=== PATIENT | female | born 1960 | race Caucasian/White ===

== ENCOUNTER 2025-02-11 12:39 | Emergency (ER) | payer MEDICAID, SELFPAY ==
--- OUTSIDE RECORDS SUMMARY | 2025-02-07 10:30 | XMS_ITS | Encounter Summary ---
Author Organization [facility] Address [address] [place] [address] Care Team Providers Care Library Acquisitions Technician Name Role Phone Margarito Hardwick MD Primary Care Provider [phone] Reason for Visit * Reason Comments Psych Np Care Visit Encounter Details Date Type Department Care Team (Late st Contact Info) Description 02/07/2025 10:30 AM INSEAM LEVELER Office Visit [facility] ([facility] Primary Care [place] [address] [facility] [address] [place] [address] Margarito Hardwick MD [address] [place] [id number] Problems related to living in residential institution (Primary Dx); Person living in residential institution; Adult failure to thrive; Chronic obstructive pulmonary disease, unspecified COPD type (CMS/HCC); Hemiplegia and hemiparesis following cerebral infarction affecting left non-dominant side (CMS/HCC); Weakness; Muscle spasm of left lower extremity Social History Tobacco Use Types Packs/Day Years Used Date Smoking Tobacco: Never Smokeless Tobacco: Never Alcohol Use Standard Drinks/Week Comments Never 0 (1 standard drink = 0.6 oz pur e alcohol) Comments Unknown Sex and Gender Information Value Date Recorded Sex Assigned at Not on file Legal Sex Female 4:20 PM CDT Gender Identity Not on file Sexual Orientation Not on file documented as of this encounter Last Filed Vital Signs Vital Sign Reading Time Taken Comments Blood Pressure 140/80 02/07/2025 10:40 AM INSEAM LEVELER pt in nuring home unable to retake Pulse 67 02/07/2025 10:40 AM INSEAM LEVELER Temperature 36.3 C (97.3 F) 02/07/2025 10:40 AM INSEAM LEVELER Respiratory Rate 18 02/07/2025 10:4 0 AM INSEAM LEVELER Oxygen Saturation 95% 02/07/2025 10: 40 AM INSEAM LEVELER Inhaled Oxygen Concentration - - Weight 84.8 kg (187 lb) 02/07/2025 10:4 0 AM INSEAM LEVELER Height - - Body Mass Index - - documented in this encounter Progress Notes * Margarito Hardwick MD - 02/08/2025 9:59 AM CST PROGRESS NOTE DATE: 02/07/2025 PCP: Margarito Hardwick MD Chief Complaint Patient presents with Psych Np Care Visit HISTORY OF PRESENT ILLNESS Lucero Bates is a 64 y.o. female. 64-year-old female, snf facility visit, monthly, no acute concerns, nursing staff voiced no acute concerns, daily activities are baseline for patient. PROBLEM LIST Patient Active Problem List Diagnosis Code Problems related to living in residential institution Z59.3 Person living in residential institution Z78.9 Hemiplegia and hemiparesis following cerebral infarction affecting left non- dominant side ([facility])I69.354 Chronic obstructive pulmonary disease (COPD) ([facility]) J44.9 Type II diabetes mellitus ([facility]) E11.9 Hyperlipidemia E78.5 Benign essential hypertension I10 Adult failure to thrive R62.7 Weakness R53.1 Insomnia G47.00 Muscle spasm of left lower extremity M62.838 CURRENT MEDICATIONS Current Outpatient Medications Medication Sig Dispense Refill ammonium lactate (LAC-HYDRIN) 12 % Lotion atorvastatin (LIPITOR) 40 mg tablet baclofen (LIORESAL) 10 mg tablet fosfomycin tromethamine (MONUROL) 3 gram Packet lisinopriL (PRINIVIL) 40 mg tablet metFORMIN (GLUCOPHAGE) 500 mg tablet metoprolol tartrate (LOPRESSOR) 25 mg tablet nystatin (NYSTOP) 100,000 unit/gram powder No current facility-administered medications for this visit. RECENT LABS No results found for: WBC , HGB , HGBPOC , HCT , HCTPOC , PLT , MCV , CHOLTOT , HDL , LDLCALC , LDLDIRECT , TRIGLYCERIDE , ALT , AST , NA , K , KPOC , CL , CO2 , CREAT , CREATPOC , BUN , TSH , TSHULTRA , THYROIDSTIM , PSA , INR , HGBA1C , MICROALBUMIN , MALBUR , [id number] ALLERGIES Allergies Allergen Reactions Sulfa (Sulfonamide Antibiotics) Headache Migraine Penicillins Rash ROS Review of Systems Constitutional: Negative for activity change, appetite change and fever. Respiratory: Negative for chest tightness, shortness of breath and wheezing. Cardiovascular: Negative for chest pain and palpitations. Gastrointestinal: Negative for abdominal pain. Musculoskeletal: Positive for arthralgias and back pain. Neurological: Negative for dizziness and light-headedness. Psychiatric/Behavioral: Negative for behavioral problems. PHYSICAL EXAMINATION BP (!) 140/80 Comment: pt in nuring home unable to retake Pulse 67 Temp 97.3 ??F (36.3 ??C) Resp 18 Wt 84.8 kg (187 lb) LMP (LMP Unknown) SpO2 95% Physical Exam Eyes: General: No scleral icterus. Conjunctiva/sclera: Conjunctivae normal. Cardiovascular: Rate and Rhythm: Normal rate and regular rhythm. Heart sounds: Normal heart sounds. Pulmonary: Effort: Pulmonary effort is normal. Breath sounds: Normal breath sounds. Skin: Coloration: Skin is not jaundiced. Neurological: General: No focal deficit present. Mental Status: She is alert. Mental status is at baseline. Psychiatric: Mood and Affect: Mood normal. ASSESSMENT & PLAN Patient Active Problem List Diagnosis Code Problems related to living in residential institution Z59.3 Person living in residential institution Z78.9 Hemiplegia and hemiparesis following cerebral infarction affecting left non- dominant side ([facility])I69.354 Chronic obstructive pulmonary disease (COPD) ([facility]) J44.9 Type II diabetes mellitus ([facility]) E11.9 Hyperlipidemia E78.5 Benign essential hypertension I10 Adult failure to thrive R62.7 Weakness R53.1 Insomnia G47.00 Muscle spasm of left lower extremity M62.838 Assessment plan: This is a 64-year-old female, snf facility, monthly visit, longterm staff voiced noacute concerns, daily activities are normal for patient, vital signs noted/stable, blood pressure 140/80, pulse rate 67/min, pulse ox room air 95%, afebrile 97.3, physical exam stable/no significant changes, chart reviewed with longterm staff, continue all medications, supportive care. To be followed up monthly. MD ENDA Deng ELIANE [address] [facility] [place] [address] [facility] [address] Portions of this encounter have been generated with Benji Henley Speaking without a human first aid attendant. This report may or may not have been corrected for typographical, grammatical, and syntax errors.* AM LEVELER documented in this encounter Plan of Treatment Not on file documented as of this encounter Visit Diagnoses Diagnosis Problems related to living in residential institution- Primary Person living in residential institution Person living in residential institution Adult failure to thrive Chronic obstructive pulmonary disease, unspecified COPD type (CMS/HCC) Hemiplegia and hemiparesis following cerebral infarction affecting left non- dominant side (CMS/HCC) Weakness Other malaise and fatigue Muscle spasm of left lower extremity documented in this encounter Care Teams Library Acquisitions Technician Relationship Specialty Start Date End Date Margarito Hardwick MD [address] [facility] [address] [place] [id number] PCP - General Internal Medicine 11/08/24 documented as of this encounter
[2025-02-11 12:39] VITALS: BP 168/90; PULSE 73; RESP 17; TEMP 36.8; O2SAT 97; BMI 33.8
--- NOTE | 2025-02-11 12:42 | ECG_ITS ---
[facility] Test Date: 2025-02-11 Pat Name: Lucero Bates Department: Room: Gender: Female Auditing Coder: : [id number] Requested By: Roderick Larkin Order Number: [id number] Deborah MD: Adonay Chilel M.D. Measurements Intervals [place] Rate: 72 P: 36 MN: 209 QRS: 68 QRSD: 105 T: 33 QT: 394 QTc: 434 Interpretive Statements SINUS RHYTHM POSSIBLE ANTERIOR MYOCARDIAL INFARCTION , OF INDETERMINATE AGE [30 ms Q WAVE IN V3/V4, OR R < 0.2 mV IN V4] No previous ECG available for comparison Electronically Signed On 02-11-2025 14:58:36 SWEATBAND PERFORATOR by Adonay Chilel M.D. [email or web address]
--- NOTE | 2025-02-11 12:42 | CTR_ITS ---
PROCEDURE INFORMATION: Exam: CT Head Without Contrast Exam date and time: 02/11/2025 12:56 PM Age: 64 years old Clinical indication: Weakness, extremity TECHNIQUE: Imaging protocol: Computed tomography of the head without contrast. Radiation optimization: All CT scans at this facility use at least one of these dose optimization techniques: automated exposure control; mA and/or kV adjustment per patient size (includes targeted exams where dose is matched to clinical indication); or iterative reconstruction. COMPARISON: No relevant prior studies available. RADIATION DOSE METRICS: Total DLP (mGy-cm): 1100.45 FINDINGS: Brain: That is also there there is a large area of encephalomalacia in the right middle cerebral artery distribution compatible with an old right middle cerebral artery infarct. There is ex vacuo dilatation of the right lateral ventricle . There is no intracranial hemorrhage, mass effect, extra-axial collection, or midline shift. There is patchy hypoattenuation in the periventricular white matter of both cerebral hemispheres which are nonspecific but most likely related to chronic ischemic small vessel disease. Cerebral ventricles: There is proportional prominence of the ventricles and cortical sulci. Paranasal sinuses: There is mild mucosal thickening in the right maxillary antrum. Mastoid air cells: Visualized mastoid air cells are well aerated. Bones: Unremarkable. No acute fracture. Soft tissues: Unremarkable. CT/CT head wo con* [id number] IMPRESSION: 1. No acute intracranial abnormality. 2. Large old infarct in the right frontotemporoparietal region. 3. Mild chronic white matter disease. 4. Age-appropriate atrophy.
--- NOTE | 2025-02-11 12:42 | XRR_ITS ---
PROCEDURE INFORMATION: Exam: XR Chest Exam date and time: 02/11/2025 12:57 PM Age: 64 years old Clinical indication: Other: Weakness TECHNIQUE: Imaging protocol: Radiologic exam of the chest. Views: 1 view. COMPARISON: No relevant prior studies available. FINDINGS: Lungs: No active infiltrate or focal parenchymal abnormality. Pulmonary vascularity is normal. Pleural spaces: No pleural effusion. No pneumothorax. Heart/Mediastinum: Normal cardiomediastinal sillhouette. Bones/joints: Unremarkable. XR/XR chest 1V portable [id number] IMPRESSION: No acute cardiopulmonary abnormality.
--- OUTSIDE RECORDS SUMMARY | 2025-02-11 12:47 | XMS_ITS | Encounter Summary ---
Author Organization [facility] Health Address [address] [place] [address] Care Team Providers Care Drier Take Off Tender Name Role Phone Yocasta Kayurbano Morris DO Primary Care Provider [phone] Lauren Murrell REFRACTORY MANAGER-FRESH MEAT GRADER Unavailable [phone] Cyndi Fernandze RN Unavailable [phone] Encounter Details Date Type Department Care Team (Late st Contact Info) Description 06/25/2016 [facility] Outpatient Visit [facility] [address] [place] [address] Document, Scanned Social History Tobacco Use Types Packs/Day Years Used Date Smoking Tobacco: Every Day Cigarettes 0.8 20 Started: 10/11/1995; Last attempted to quit: 10/11/2015 Smokeless Tobacco: Never Alcohol Use Standard Drinks/Week Comments Yes 1 (1 standard drink = 0.6 oz pur e alcohol) only drinks on rare occasions Comments No Sex and Gender Information Value Date Recorded Sex Assigned at Not on file Legal Sex Female 8:04 AM TAG MAKER Gender Identity Not on file Sexual Orientation Not on file 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 Answer Date of Assessment Author No 01/04/2016 9:00 PM Lidia Elizondo RN * Is person blind or have serious difficulty seeing? Answer Date of Assessment Author Yes 01/04/2016 9:00 PM CDT Sweet, Gi na B, RN * Does person have serious difficulty walking/climbing stairs? Answer Date of Assessment Author Yes 01/04/2016 9:00 PM CDT Lidia Alamo RN * Does person have difficulty dressing/bathing? Answer Date of Assessment Author No 01/04/2016 9:00 PM CDT Lidia Alamo RN * Does person have difficulty doing errands alone? Answer Date of Assessment Author No 01/04/2016 9:00 PM CDT Lidia Alamo RN documented as of this encounter Mental Status * Does person have difficulty concentrating/remembering/making decisions? Answer Entry Date Author Yes 01/04/2016 9:00 PM CDT Lidia Alamo RN documented in this encounter Plan of Treatment Not on file documented as of this encounter Goals Goal Patient Goal Type Associated Problems Recent Progress Patient-Stated? Author Blood Pressure < 140/90 Blood Pressure 112/72( 017 9:32 AM CDT) No Jen Crystal documented as of this encounter Visit Diagnoses Not on filedocumented in this encounter Care Teams Drier Take Off Tender Relationship Specialty Start Date End Date Blanco Kay DO PCP - General Family Medicine 09/12/10 08/17/17 Lauren Murrell APRN-FRESH MEAT GRADER Nurse Practitioner Family Medicine 03/09/11 Cyndi Fernandez RN Disease Management 09/05/15 documented as of this encounter
--- OUTSIDE RECORDS SUMMARY | 2025-02-11 12:47 | XMS_ITS | Encounter Summary ---
Author Organization [facility] Health Address [address] [place] [address] Care Team Providers Care Quebracho Tanner Name Role Phone Yocasta Kayurbano Morris DO Primary Care Provider [phone] Lauren Murrell PARADICHLOROBENZENE TENDER-COMMUNICATIONS STATION MANAGER Unavailable [phone] Cyndi Fernandez RN Unavailable [phone] Encounter Details Date Type Department Care Team (Late st Contact Info) Description 06/11/2016 [facility] Outpatient Visit [facility] [address] [place] [address] Document, Scanned Social History Tobacco Use Types [...] on file Legal Sex Female 8:04 AM KENO MANAGER Gender Identity Not on file Sexual Orientation [...] on filedocumented in this encounter Care Teams Quebracho Tanner Relationship Specialty Start Date End Date Blanco Kay DO PCP - General Family Medicine 09/12/10 08/17/17 Lauren Murrell APRN-COMMUNICATIONS STATION MANAGER Nurse Practitioner Family Medicine 03/09/11 Cyndi Fernandez RN Disease Management 09/05/15 documented as of this encounter
--- OUTSIDE RECORDS SUMMARY | 2025-02-11 12:47 | XMS_ITS | Encounter Summary ---
Author Organization [facility] Health Address [address] [place] [address] Care Team Providers Care Bark Tanner Name Role Phone Yocasta Kayurbano Morris DO Primary Care Provider Lauren Murrell MANAGER FUNCTIONAL-RESIDENTIAL MORTGAGE MANAGER Unavailable + [phone] Cyndi Fernandez RN Unavailable [phone] Encounter Details Date Type Department Care Team (Late st Contact Info) Description 07/23/2016 [facility] Outpatient Visit [facility] [address] [place] [address] Document, Scanned Social History Tobacco Use Types [...] on file Legal Sex Female 8:04 AM HIDE SPREADER Gender Identity Not on file Sexual Orientation [...] on filedocumented in this encounter Care Teams Bark Tanner Relationship Specialty Start Date End Date Blanco Kay DO PCP - General Family Medicine 09/12/10 08/17/17 Lauren Murrell APRN-RESIDENTIAL MORTGAGE MANAGER Nurse Practitioner Family Medicine 03/09/11 Cyndi Fernandez RN Disease Management 09/05/15 documented as of this encounter
--- OUTSIDE RECORDS SUMMARY | 2025-02-11 12:48 | XMS_ITS | Clinical Summary ---
Author Organization [facility] Address [address] [place] [address] Care Team Providers Care Gear Tooth Grinding Machine Operator Name Role Phone Lauren Murrell APRN-ERIBERTO Unavailable [phone] Cyndi Fernandez RN Unavailable [phone] Source Comments [facility],non-owned Affiliates and Associated Physician Practices is amultiple site organization consisting of ambulatory clinics and hospital sitesin [place], [place], [place] and [place]. This disclosure is being madepursuant to the Care Everywhere program and may not contain all information available regarding this patient. Last updated 17.[facility] Allergies Active Allergy Reactions Criticality Noted Date Comments Penicillins Rash Low 01/15/2009 Sulfa Drugs 01/15/2009 Migraine Medications * Be aware that medications may not be up to date on this document. Alwaysverify current medications with the patient. aspirin (ASPIRIN) 81 MG chew tablet Take 1 Tab by mouth once daily 0 02/21/2016 Active clopidogrel (PLAVIX) 75 MG tablet Take 1 Tab by mouth once daily 30 Tab 5 05/21/2016 Active lisinopril (PRINIVIL; ZESTRIL) 40 MG tablet Take 1 Tab by mouth once daily 30 Tab 5 06/04/2016 Active amLODIPine (NORVASC) 10 MG tabletIndicatio ns:Hypertension Take 1 Tab by mouth once daily Reasons: High Blood Pressure 90 Tab 3 07/14/2016 Active potassium chloride (KLOR-CON M) 10 MEQ tablet Take 1 Tab by mouth once daily 90 Tab 3 07/15/2016 Active Loratadine (CLARITIN) 10 MG Active metFORMIN (GLUCOPHAGE) 500 MG tablet TAKE ONE TABLET BY MOUTH TWICE DAILY WITH MORNING AND EVENING MEAL 180 Tab 3 09/02/2016 Active furosemide (LASIX) 20 MG tablet TAKE ONE TABLET BY MOUTH ONCE DAILY 90 Tab 3 09/02/2016 Active sertraline (ZOLOFT) 100 MG tablet TAKE ONE TABLET BY MOUTH ONCE DAILY IN THE EVENING AT 8 PM 90 Tab 3 09/02/2016 Active metoprolol tartrate (LOPRESSOR) 50 MG tablet TAKE ONE TABLET BY MOUTH TWICE DAILY 180 Tab 3 09/02/2016 Active atorvastatin (LIPITOR) 40 MG tablet TAKE ONE TABLET BY MOUTH ONCE DAILY AT BEDTIME 90 Tab 3 09/02/2016 Active Active Problems Problem Noted Date Diagnosed Date Chronic obstructive pulmonary disease 08/06/2016 Nonischemic cardiomyopathy 05/25/2016 Hemiparesis affecting nondom inant side as late effect of cerebrovascular accident 02/28/2016 Cerebrovascular accident (CV A) due to thrombosis of middle cerebral artery 01/05/2016 Assessment & Plan (01/05/2016 9:35 AM CDT): Sub acute CVA Headache likely secondary to CVA. Will await Neurology consult Abnormal chest CT bilat Infi ltrates, nodules, and lymph adenopathy 09/04/2015 HTN 09/04/2015 Assessment & Plan (01/05/2016 9:35 AM CDT): Will resume her home medications and re-evaluate. 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 Tobacco use disorder 08/25/2012 Depression 08/25/2012 Hidradenitis axillaris 07/17/2010 Insomnia 07/17/2010 Resolved Problems Problem Noted Date Diagnosed Date Resolved Date UTI (urinary tract infection) 02/18/2016 03/03/2016 Altered mental status 02/18/20162015 Hyperkalemia 02/18/2016 02/28/2016 Pain in joint, shoulder region 02/12/2016 07/14/2016 Overview (02/12/2016): Dx: pain post stroke Dislocated shoulder 01/18/2016 07/15/19 17 Headache 01/05/2016 02/28/2016 Assessment & Plan (01/05/2016 9:38 AM CDT): She received a dose of Toradol. Headache is better again would defer to neurology COPD exacerbation 10/27/2015 02/28/2016 Pleural effusion transudative 09/05/2015 02/28/2016 Acute respiratory failure with hypoxemia 09/05/2015 02/28/2016 Chest pain, pleuritic 09/04/20152015 Acute on chronic systolic he art failure ? on Echo (Not treated) 09/04/2015 07/14/2016 Hand pain, right 08/25/2012 07/14/2016 Elbow pain, left 08/25/2012 07/14/2016 Elevated blood pressure read ing without diagnosis of hypertension 07/17/2010 10/08/2015 Overview (06/27/2016): IMO Update 06/27/2016 Immunizations Immunization Administration Dates Next Due HEP B VACCINE, ADULT 3 DOSE 07/14/2016 INFLUENZA VACCINE, QUADR. (F LUZONE; FLULAVAL; FLUARIX; AFLURIA QUADRIVALENT; 6MO+), 0.5 ML (IIV4) 01/05/2016 PNEUMOCOCCAL PPSV23 04/13/2016 TDAP (7yrs+) 01/15/2009 Family History Medical History Relation Name Comments NM Maternal Uncle 2 Glaucoma Mother Hypertension Mother Osteoporosis Mother Cancer - Breast Neg Hx Cancer - Colon Neg Hx Colon polyps Neg Hx Relation Name Status Comments Brother 1 Alive age 37, MS Brother 2 Alive age 42, healthy Brother 3 half brother (Age ?) MS Father Alive unknown except emphysema Maternal Uncle 1 several Other NM CAD Maternal Uncle 2 Mother (Age 71) COPD and H eart disease Sister 1 Alive age 48, healthy Sister 2 (Age 26) medication side effect Sister 3 Alive age 39, healthy Sister 4 half sister (Age ?) MS Social History Tobacco Use Types Packs/Day Years Used Date Smoking Tobacco: Every Day Cigarettes 1 20 Started: 10/11/1995; Last attempted to quit: 10/11/2015 Smokeless Tobacco: Never Tobacco Cessation:Ready to Q uit: Yes Alcohol Use Standard Drinks/Week Comments No 1 (1 standard drink = 0.6 oz pur e alcohol) Comments No Sex and Gender Information Value Date Recorded Sex Assigned at Not on file Legal Sex Female 8:04 AM TRAINING PROFESSIONAL Gender Identity Not on file Sexual Orientation Not on file 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 Not on file Not on file Not on file Last Filed Vital Signs Vital Sign Reading Time Taken Comments Blood Pressure 112/72 08/07/2016 9:32 AM CDT Pulse 70 08/07/2016 9:32 AM CDT Temperature 36.8 C (98.3 F) 03/25/2016 12:18 PM TRAINING PROFESSIONAL Respiratory Rate 20 07/14/2016 9:26 AM CDT Oxygen Saturation 95% 08/06/2016 11:47 AM CDT Inhaled Oxygen Concentration - - Weight 88.5 kg (195 lb) 08/07/2016 9:32 AM CDT Height 157.5 cm (5' 2 ) 07/14/2016 9:26 AM CDT Body Mass Index 35.67 07/14/2016 9:26 AM CDT Plan of Treatment Health Maintenance Due Date Last Done Comments BONE DENSITY TESTING 1959 COLOGUARD (AGES 45-75) - COLON CA SCREENING 1959 COLON MONITORING 1959 COLONOSCOPY - COLON CA SCREENING 1959 CT COLONOGRAPHY - COLON CA SCREENING 1959 Colorectal Cancer Screening 1959 FIT - COLON CA SCREENING 1959 FLEX SIG - COLON CA SCREENING 1959 HIV SCREENING 10/17/1974 PAP with HPV 10/17/1989 Respiratory Syncytial Virus (RSV) Vaccine Pt: or over 60 yrs (1 - Risk 50-74 years 1-dose series) 10/17/2009 ZOSTER VACCINE (1 of 2) 10/17/2009 Cervical Cancer Screening 03/15/2015 PAP SMEAR 03/15/2015 03/15/2012, 01/15/2009 HEPATITIS B VACCINE (2 of 3 - Risk 3-dose series) 08/11/2016 07/14/2016 DIABETES-HGB A1C 01/13/2017 07/14/2016, 10/2015, 09/04/2015 DIABETES-FOOT EXAM WITH MONOFILAMENT 04/13/2017 04/13/2016 PNEUMOCOCCAL VACCINE 50+ (2 of 2 - PCV) 04/13/2017 04/13/2016 DIABETES-SERUM CREATININE 07/14/20172016, 02/18/2016, 02/17/2016, Additional history exists MAMMOGRAM 07/22/2018 07/22/2016, 01/14/2009 DTAP/TDAP/TD VACCINES (2 - Td or Tdap) 01/15/2019 01/15/2009 DEPRESSION SCREENING 03/29/2024 DIABETES - URINE PROTEIN SCREENING 03/29/2024 04/15/2016 COVID-19 VACCINE ( season) 2024 INFLUENZA VACCINE (#1) 2024 01/05/2016 HEPATITIS C SCREENING Completed 04/13/2016 HIB VACCINE Aged Out No longer eligi ble based on patient's age to complete this topic HPV VACCINE Aged Out No longer eligi ble based on patient's age to complete this topic MENINGOCOCCAL (Group B) VACCINE SHARED DECISION-MAKING Aged Out No longer eligible based on patient's age to complete this topic MENINGOCOCCAL GROUPS A/C/Y/W VACCINE Aged Out No longer eligible based on patient's age to complete this topic Goals Goal Patient Goal Type Associated Problems Recent Progress Patient-Stated? Author Blood Pressure < 140/90 Blood Pressure 112/72( 017 9:32 AM CDT) No Bonilla, Jen Procedures Procedure Name Priority Date/Time Associated Diagnosis Comments MAMMO BILAT SCREENING Routine 07/22/2016 10:04 AM CDT Screening for breast cancer BASIC METABOLIC PANEL (CALCIUM TOTAL) Routine 07/14/2016 10:11 AM CDT Type 2 diabetes mellitus without complication, without long-term current use of insulin HEMOGLOBIN A1C Routine 07/14/2016 10:11 AM CDT Type 2 diabetes mellitus without complication, without long-term current use of insulin MICROALB/CREAT RATIO URINE RANDOM PANEL Routine 04/15/2016 3:10 PM TRAINING PROFESSIONAL Type 2 diabetes mellitus without complication, without long-term current use of insulin HEPATITIS C ANTIBODY Routine 04/13/2016 11:33 AM TRAINING PROFESSIONAL Need for hepatitis C screening test PAP LB RFLX HPV ASCU Routine 03/15/2012 3:58 PM TRAINING PROFESSIONAL Routine gynecological examination from Last 3 Months or Most Recently Relevant to Health Maintenance Results * MAMMO SCREENING DIGITAL IMAGE BILAT (07/22/2016 10:04 AM CDT) Anatomical Region Laterality Modality Breast Bilateral Mammography 07/29/2016 9:40 AM CDT Impressions 07/29/2016 9:40 AM CDT No mammographic evidence of malignancy. BI-RADS Category 1: Negative examination. Return for mammograms in one year or sooner if clinically indicated. Narrative 07/29/2016 9:40 AM CDT Bilateral mammography. Most recent comparison: 01/14/2009 History: Screening mammogram. Technique: Bilateral Breasts. Mammography views included: CC and MLO. Images interpreted with CAD. 3-D tomography was performed. Findings: Breast composition: Almost entirely fatty. No suspicious microcalcifications, masses or areas of architectural distortion. The fibroglandular pattern has remained stable. Blanco Kay DO MAMMO ORDERABLES Final Result * HEMOGLOBIN A1C (07/14/2016 10:11 AM CDT) Hemoglobin A1c 5.9 4.2 - 6.3 % [facility] INSURANCE BILL Comment:AVERAGE GLUCOSE MG/D L BLOOD 123 mg/dL Whole Blood BLOOD SPECIMEN WITH EDTA / Unknown 07/14/2016 10:11 AM CDT 07/14/2016 Narrative Resulting Agency Comment [facility] [address] [place] HECTOR [phone] [place] Blanco Kay DO LAB - CHEMISTRY ORDERABLES Final Result [facility] INSURANCE BILL [address] [place] [address] * (ABNORMAL) BASIC METABOLIC PANEL (CALCIUM TOTAL) (07/14/2016 10:11 AM CDT) Glucose 109(H) 74 - 106 mg/dL [facility] INSURANCE BILL BUN 12 7 - 21 mg/dL [facility] INSURANCE BILL Creatinine 0.65 0.50 - 1.30 mg/dL [facility] INSURANCE BILL eGFR by MDRD >60 >60 mL/min/1.7 3m2 [facility] INSURANCE BILL eGFR by MDRD >60 >60 mL/min/1.7 3m2 [facility] INSURANCE BILL Sodium 141 136 - 145 mmol/L [facility] INSURANCE BILL Potassium 3.4(L) 3.5 - 5.1 mmol/L [facility] INSURANCE BILL Chloride 103 98 - 107 mmol/L [facility] INSURANCE BILL CO2 25 22 - 31 mmol/L [facility] INSURANCE BILL Calcium 9.4 8.5 - 10.1 mg/dL [facility] INSURANCE BILL Blood BLOOD SPECIMEN / Unknown 07/14/2016 10:11 AM CDT 07/14/2016 Narrative Resulting Agency Comment [facility] [address] [place]ECTOR [phone] [place] Blanco Kay DO LAB - CHEMISTRY ORDERABLES Final Result [facility] INSURANCE BILL [address] [place] [address] * MICROALB/CREAT RATIO URINE RANDOM PANEL (04/15/2016 3:10 PM TRAINING PROFESSIONAL) Creatinine Urine 76 mg/dL [facility] INSURANCE BILL Microalbumin Urine 0.6 mg/dL [facility] INSURANCE BILL Microalbumin/Crea tinine Ratio 8 <30 mg/g [facility] INSURANCE BILL Urine URINE SPECIMEN OBTAINED BY CLEAN CATCH PROCEDURE / Unknown 04/15/2016 3:10 PM TRAINING PROFESSIONAL 04/15/2016 Narrative Resulting Agency Comment [facility] [address] [place] HECTOR [phone] Blanco Kay DO LAB - URINE CHEMISTRY ORDERABLES Final Result [facility] INSURANCE BILL [address] [place] [address] * HEPATITIS C ANTIBODY (04/13/2016 11:33 AM TRAINING PROFESSIONAL) Hepatitis C Antibody Non Reactive Non Reactive [facility] INSURANCE BILL Comment: Non Reactive - Antibodies to Hepatitis C virus (HCV) were no t detected, result does not exclude early acute HCV infection. Blood BLOOD SPECIMEN / Unknown 04/13/2016 11:33 AM TRAINING PROFESSIONAL 04/13/2016 Narrative Resulting Agency Comment [facility] [address] [phone] Blanco Kay DO LAB - CHEMISTRY ORDERABLES Final Result [facility] INSURANCE BILL [address] [place] [address] * PAP SMEAR LB RFLX HPV ASCU (PO REF LAB) (03/15/2012 3:58 PM TRAINING PROFESSIONAL) Diagnosis [facility] INSURANCE BILL Comment:NEGATIVE FOR INTRAEP ITHELIAL LESION AND MALIGNANCY. Specimen Adequacy [facility] INSURANCE BILL Comment: Satisfactory for evaluation. Endocervical and/or squamous metaplastic cells (endocervical component) are present. Clinician Provided ICD9 [facility] INSURANCE BILL Comment:V72.31 ; Routine obstetrics gynecology md ecological examination Performed by [facility] INSURANCE BILL Comment:Hali Matta Cytote chnologist (ASCP) Comment . [facility] INSURANCE BILL Note [facility] INSURANCE BILL Comment: The Pap smear is a screening test designed to aid in the detection of premalignant and malignant conditions of the uterine cervix. It is not a diagnostic procedure and should not be used as the sole means of detecting cervical cancer. Both false-positive and false-negative reports do occur. . Note [facility] INSURANCE BILL Comment: The HPV DNA reflex criteria were not met with this specimen result therefore, no HPV testing was performed. . MICROSCOPIC CYTOLOGIC EXAMINATION OF SMEAR OF SPECIMEN FROM FEMALE GENITAL TRACT PREPARED USING PAPANICOLAOU TECHNIQUE / Unknown 03/15/2012 3:58 PM TRAINING PROFESSIONAL 03/16/2012 1:22 AM TRAINING PROFESSIONAL Narrative [facility] INSURANCE BILL - 03/18/2012 9:22 AM TRAINING PROFESSIONAL No. of containers..01 CYTYC Thin Prep Vial Resulting Agency Comment [address] [phone] Sawyer Tellez Jr., MD LAB - PATHOLOGY/CYTOL OGY ORDERABLES Final Result [facility] INSURANCE BILL [address] [place] [address] from Last 3 Months or Most Recently Relevant to Health Maintenance Insurance MEDICAID [place] MED[place]ID - PENDING Advance Directives * Full Code (Latest Code Status on File) Date Activated Date Inactivated Comments 02/17/2016 7:41 PM 02/20/2016 11:55 AM * Full Code Date Activated Date Inactivated Comments 02/17/2016 6:11 PM 02/17/2016 7:41 PM * Full Code Date Activated Date Inactivated Comments 01/12/2016 3:45 PM 02/17/2016 10:27 AM * Full Code Date Activated Date Inactivated Comments 01/04/2016 9:36 PM 01/09/2016 8:07 PM * Full Code Date Activated Date Inactivated Comments 09/04/2015 5:25 AM 09/07/2015 3:09 PM Care Teams Gear Tooth Grinding Machine Operator Relationship Specialty Start Date End Date Lauren Murrell, JOSIAH-VEHICLE DELIVERY WORKER Nurse Practitioner Family Medicine 03/09/11 Cyndi Fernandez, RN Disease Management 09/05/15
--- OUTSIDE RECORDS SUMMARY | 2025-02-11 12:48 | XMS_ITS | Encounter Summary ---
Author Organization [facility] Health Address [address] [place] [address] Care Team Providers Care School Age Program Associate Name Role Phone KayYocastaurbano Morris DO Primary Care Provider [phone] Lauren Murrell COMBINE INSPECTOR-YIELD LOSS INSPECTOR Unavailable [phone] Cyndi Fernandez RN Unavailable [phone] Encounter Details Date Type Department Care Team (Late st Contact Info) Description 04/24/2016 [facility] Outpatient Visit [facility] [address] [place] [address] Document, Scanned Social History Tobacco Use Types Packs/Day Years Used Date Smoking Tobacco: Former Cigarettes 0.8 20 0 10/11/1995 - 10/11/2015 Smokeless Tobacco: Never Alcohol Use Standard Drinks/Week Comments Yes 1 (1 standard drink = 0.6 oz pur e alcohol) only drinks on rare occasions Comments No Sex and Gender Information Value Date Recorded Sex Assigned at Not on file Legal 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 Answer Date of Assessment Author Yes 01/04/2016 9:00 PM CDT Lidia Alamo RN * Does person have difficulty dressing/bathing? Answer Date of Assessment Author No 01/04/2016 9:00 PM CDT Lidia Alamo RN * Does person have difficulty doing errands alone? Answer Date of Assessment Author No 01/04/2016 9:00 PM TONIOT Lidia Alamo RN documented as of this [...] Blood Pressure 112/72( 017 9:32 AM CDT) Jen Lowery documented as of this encounter Visit Diagnoses Not on filedocumented in this encounter Care Teams School Age Program Associate Relationship Specialty Start Date End Date Blanco Kay DO PCP - General Family Medicine 09/12/10 08/17/17 Lauren Murrell, COMBINE INSPECTOR-YIELD LOSS INSPECTOR Nurse Practitioner Family Medicine 03/09/11 Cyndi Fernandez RN Disease Management 09/05/15 documented as of this encounter
--- OUTSIDE RECORDS SUMMARY | 2025-02-11 12:48 | XMS_ITS | Clinical Summary ---
Author Organization [facility] Physici an [place] Address [facility] [place] [address] Care Team Providers Care Occ Therapist Name Role Phone Margarito Hardwick MD Primary Care Provider [phone] Allergies Active Allergy Reactions Criticality Noted Date Comments Penicillins Rash Low 01/15/2009 Sulfa (Sulfonamide Antibiotics) Headache High 12/28 Migraine Medications ammonium lactate (LAC-HYDRIN) 12 % Lotion 10/27/2024 Active atorvastatin (LIPITOR) 40 mg tablet 11/07/2024 Active baclofen (LIORESAL) 10 mg tablet 11/07/2024 Active fosfomycin tromethamine (MONUROL) 3 gram Packet 10/17/2024 Active lisinopriL (PRINIVIL) 40 mg tablet 11/07/2024 Active metFORMIN (GLUCOPHAGE) 500 mg tablet 11/07/2024 Active metoprolol tartrate (LOPRESSOR) 25 mg tablet 10/31/2024 Active nystatin (NYSTOP) 100,000 unit/gram powder 11/06/2024 Active Active Problems Problem Noted Date Diagnosed Date Muscle spasm of left lower extremity 01/11/2025 Insomnia 12/07/2024 Assessment & Plan (12/07/2024 10:55 AM CDT): 64-year-old female, nursing home home facility, monthly alf visit, no acute concerns other than sleeping issues, noted that she does take daytime naps here or there during the whole day, counseled, trial of melatonin at nighttime as needed, med chart reviewed with alf staff, to continue all medications and supportive care. Problems related to living in residential instit ution 11/08/2024 Assessment & Plan (12/07/2024 10:55 AM CDT): Assessment & Plan (11/09/2024 2:25 PM CDT): Person living in residential institution 025 Assessment & Plan (12/07/2024 10:55 AM CDT): Assessment & Plan (11/09/2024 2:25 PM CDT): Hemiplegia and hemiparesis f ollowing cerebral infarction affecting left non-dominant side 11/08/2024 Assessment & Plan (12/07/2024 10:55 AM CDT): Stable. {Plan:19132:: Continue supportive care. } Assessment & Plan (11/09/2024 2:25 PM CDT): Stable. Continue supportive care. Chronic obstructive pulmonary disease (COPD) Assessment & Plan (12/07/2024 10:55 AM CDT): Well controlled. Continue current treatment. Assessment & Plan (11/09/2024 2:25 PM CDT): Well controlled. Continue current treatment. Type II diabetes mellitus 11/08/2024 Assessment & Plan (12/07/2024 10:55 AM CDT): Diabetes: Stable. Continue current management. Assessment & Plan (11/09/2024 2:25 PM CDT): Diabetes: Stable. Check A1C to further assess. Continue current management. Hyperlipidemia 11/08/2024 Benign essential hypertension 11/08/2024 Assessment & Plan (12/07/2024 10:55 AM CDT): Assessment & Plan (11/09/2024 2:25 PM CDT): Adult failure to thrive 11/08/2024 Assessment & Plan (12/07/2024 10:55 AM CDT): Assessment & Plan (11/09/2024 2:25 PM CDT): Weakness 11/08/2024 Assessment & Plan (12/07/2024 10:55 AM CDT): Assessment & Plan (11/09/2024 2:25 PM CDT): Assessment and plan: 1. Monthly alf routine visit 2. Patient and alf staff no acute concerns 3. Blood pressure noted 178/98, staff will be monitoring, to call if continues to be 140/90 or higher, presently continue medications. 4. [facility]DC chart/alf staff reviewed's/cases, continue all present medications, supportive care. CVA history/wheelchair/baseline. Encounters Date Type Department Care Team Description 02/07/2025 10:30 AM RESPIRATORY MEDICINE PHYSICIAN Office Visit [facility] [place] [address] [facility] [address] [facility] [place] [address] Margarito Hardwick MD Problems related to living in residential institution (Primary Dx); Person living in residential institution; Adult failure to thrive; Chronic obstructive pulmonary disease, unspecified COPD type (CMS/HCC); Hemiplegia and hemiparesis following cerebral infarction affecting left non-dominant side (CMS/HCC); Weakness; Muscle spasm of left lower extremity 01/30/2025 External Device Data STL ABSTRACTION Provider, Abstract 01/10/2025 Penitentiary Visit [facility] Care [place] [address] [facility] [place] [address] [facility] [address] Margarito Hardwick MD Problems related to living in residential institution (Primary Dx); Person living in residential institution; Chronic obstructive pulmonary disease, unspecified COPD type (CMS/HCC); Hemiplegia and hemiparesis following cerebral infarction affecting left non-dominant side (CMS/HCC); Adult failure to thrive; Weakness; Muscle spasm of left lower extremity 01/09/2025 External Device Data [place] ABSTRACTION Provider, Abstract 12/06/2024 Penitentiary Visit [facility] Primary [facility] [place] [address] [facility] [address] [facility] [place] [address] Margarito Hardwick MD Problems related to living in residential institution (Primary Dx); Person living in residential institution; Chronic obstructive pulmonary disease, unspecified COPD type (CMS/HCC); Type 2 diabetes mellitus without complication, without long-term current use of insulin ([facility]/HCC); Hemiplegia and hemiparesis following cerebral infarction affecting left non-dominant side ([facility]/HCC); Benign essential hypertension; Adult failure to thrive; Weakness; Insomnia, unspecified type 12/05/2024 External Device Data STL ABSTRACTION Provider, Abstract 12/05/2024 Abstract [facility] [address] [place] [address] Ely Larson, [facility] 12/05/2024 Abstract [facility] [address] [place] [address] Ely Larson, [facility] 11/22/2024 External Device Data [facility] ABSTRACTION Provider, Abstract 11/14/2024 External Device Data [place] ABSTRACTION Provider, Abstract 11/14/2024 External Device Data [place] ABSTRACTION Provider, Abstract from Last 3 Months Immunizations Immunization Administration Dates Next Due (PNEUMOVAX 23)(50 YRS UP) PN EUMOCOCCAL POLYSACCHARIDE (PPV23) 0.5 ML, IM 04/13/2016 Hepatitis B Vaccine 07/14/2016 Influenza Seasonal Unspecified Formulation IM Td(adult) Unspecified Formulation 02/12/1993 Family History Relation Name Status Comments Father Unknown Mother Unknown Social History Tobacco Use Types Packs/Day Years Used Date Smoking Tobacco: Never Smokeless Tobacco: Never Tobacco Cessation:Counseling Given: No Alcohol Use Standard Drinks/Week Comments Never 0 (1 standard drink = 0.6 oz pur e alcohol) Comments Unknown Sex and Gender Information Value Date Recorded Sex Assigned at Not on file Legal Sex Female 4:20 PM CDT Gender Identity Not on file Sexual Orientation Not on file Last Filed Vital Signs Vital Sign Reading Time Taken Comments Blood Pressure 140/80 02/07/2025 10:40 AM RESPIRATORY MEDICINE PHYSICIAN pt in nuring home unable to retake Pulse 67 02/07/2025 10:40 AM RESPIRATORY MEDICINE PHYSICIAN Temperature 36.3 C (97.3 F) 02/07/2025 10:40 AM RESPIRATORY MEDICINE PHYSICIAN Respiratory Rate 18 02/07/2025 10:4 0 AM RESPIRATORY MEDICINE PHYSICIAN Oxygen Saturation 95% 02/07/2025 10: 40 AM RESPIRATORY MEDICINE PHYSICIAN Inhaled Oxygen Concentration - - Weight 84.8 kg (187 lb) 02/07/2025 10:4 0 AM RESPIRATORY MEDICINE PHYSICIAN Height - - Body Mass Index - - Plan of Treatment Health Maintenance Due Date Last Done Comments DIABETES ANNUAL RETINAL EXAM 10/17/1977 DIABETES MICROALBUMIN ANNUAL SCREEN 10/17/1977 LDL CHOLESTEROL ANNUAL 10/17/1977 COLORECTAL SCREENING 10/17/2004 FIT-DNA Q 3 years 10/17/2004 FIT/FOBT Q 1 year 10/17/2004 Flex Sig/CT Colonography Q 5 years 10/17/2004 RSV VACCINE (60+ or ) (1 - Risk 50-74 years 1-dose series) 10/17/2009 ZOSTER VACCINE (1 of 2) 10/17/2009 Preventative Visit-Managed Medicaid 03/16/2013 03/15/2012, 01/15/2009 DIABETES HBA1C Q 6 MONTHS 01/13/2017 07/14/2016 DIABETES ANNUAL FOOT EXAM 04/13/2017 04/13/2016 PNEUMOCOCCAL VACCINE 50+ YEARS (2 of 2 - PCV) 04/13/2017 04/13/2016 DIABETES: A1C (Auto Order) 07/14/2017 07/14/2016 DTAP/TDAP/TD VACCINES (2 - T d or Tdap) 01/15/2019 01/15/2009, 02/12/1993 OSTEOPOROSIS SCREENING 10/17/2024 INFLUENZA VACCINE (#1) 2024 6, 01/05/2016 BREAST CANCER SCREENING 03/07/2025 07/22/2016 Post poned from 07/22/2017 (Patient Refused) Colorectal Cancer Screening 12/07/2025 Postponed from 10/17/2004 (Patient Refused) Insurance [place] Care Teams Occ Therapist Relationship Specialty Start Date End Date Margarito Hardwick MD [address] [address] [place] [phone] PCP - General Internal Medicine 11/08/24
--- NOTE | 2025-02-11 12:49 | W.ED.NEUROSD ---
HPI - Neuro Symptoms/Deficit General: Chief Complaint: Neuro Symptoms/Deficit Stated Complaint: weakness; dizzy Time Seen by Provider: 02/11/25 12:40 Source: patient and EMS Mode of arrival: EMS Limitations: no limitations History of Present Illness: 64-year-old female that history of stroke in the past has left-sided deficits from the stroke and is wheelchair-bound. Patient resides in a assisted. She states that today roughly around 11 she had episode where she states she just felt lightheaded and had some generalized weakness. She denies any focal deficits states this lasted roughly 2030 minutes and has since completely resolved states she feels back at her baseline she denies any headache she denies any fever. Related Data Home Medications ?Medication ?Instructions ?Recorded ?Confirmed acetaminophen 325 mg tablet 650 mg PO Q4H PRN Pain 02/11/25 02/11/25 aluminum-mag hydroxide-simethicone 30 ml PO Q4H PRN heartburn, 02/11/25 02/11/25 200 mg-200 mg-20 mg/5 mL oral susp indigestion, stomach ammonium lactate 12 % lotion See Rx Instructions .Route .COMPLEX 02/11/25 02/11/25 (AmLactin) atorvastatin 40 mg tablet 40 mg PO QAM 02/11/25 02/11/25 baclofen 10 mg tablet 10 mg PO DAILY 02/11/25 02/11/25 baclofen 5 mg tablet 5 mg PO Q8H PRN muscle spasms 02/11/25 02/11/25 bisacodyl 10 mg rectal suppository 10 mg NV DAILY PRN Constipation 02/11/25 02/11/25 calcium carbonate (Tums) 400 mg PO Q8H PRN gi upset 02/11/25 02/11/25 cranberry fruit 450 mg tablet 900 mg PO DAILY 02/11/25 02/11/25 (cranberry) dextromethorphan-guaifenesin 10 10 ml PO Q6H PRN Cough 02/11/25 02/11/25 mg-100 mg/5 mL oral liquid (Barbara-Tussin DM) hydrocortisone 1 % topical cream See Rx Instructions .Route 02/11/25 02/11/25 .COMPLEX PRN Itching ibuprofen 200 mg tablet 800 mg PO Q6H PRN Pain 02/11/25 02/11/25 lisinopril 40 mg tablet 40 mg PO DAILY 02/11/25 02/11/25 loperamide 2 mg-simethicone 125 mg 1 tab PO Q6H PRN Diarrhea 02/11/25 02/11/25 tablet magnesium hydroxide 400 mg/5 mL 30 ml PO DAILY PRN Constipation 02/11/25 02/11/25 oral suspension (Milk of Magnesia) melatonin 3 mg tablet 3 mg PO BEDTIME 02/11/25 02/11/25 metformin 500 mg tablet 500 mg PO DAILY 02/11/25 02/11/25 metoprolol tartrate 25 mg tablet 75 mg PO DAILY 02/11/25 02/11/25 nystatin 100,000 unit/gram topical See Rx Instructions .Route .COMPLEX 02/11/25 02/11/25 ointment ropinirole 1 mg tablet 1 mg PO BEDTIME 02/11/25 02/11/25 sodium phosphates 19 gram-7 118 ml NV DAILY PRN Constipation 02/11/25 02/11/25 gram/118 mL enema (Fleet Enema) Allergies Allergy/AdvReac Type Severity Reaction Status Date / Time Penicillins Allergy ADR-Itching Verified 02/11/25 12:47 Sulfa (Sulfonamide Allergy ADR-Nausea Verified 02/11/25 12:47 Antibiotics) Physical Exam Const: COMMON NORMALS: no acute distress, patient oriented x3 and healthy appearing HENMT: COMMON NORMALS: normocephalic and atraumatic HEAD & SCALP: normocephalic and atraumatic Eye: COMMON NORMALS: Equal, round and reactive pupils present and EOMs intact bilaterally PUPIL: Yes Equal, round and reactive pupils present Neck/C-Spine: COMMON NORMALS: full ROM and supple Chest: COMMONS NORMALS: normal inspection of the chest and normal palpation of entire chest wall Resp: COMMON NORMALS: normal respiratory effort, No retractions, No use of accessory muscles and clear to auscultation bilaterally AUSCULTATION: clear to auscultation bilaterally Cardio: COMMON NORMALS: regular rate, regular rhythm and No murmurs present (Cardio) RATE: regular rate RHYTHM: regular rhythm GI: COMMON NORMALS: Normal to inspection, nondistended, normoactive bowel sounds present, Soft to palpation, non-tender and no masses PALPATION: Yes Soft to palpation Extremity: COMMON NORMALS: normal to inspection and full ROM Neuro: COMMON NORMALS: patient oriented x3 and no focal motor deficits SPEECH: speech normal OTHER: 5 out of 5 strength to right upper and lower extremity has left-sided weakness at baseline from previous stroke Psych: COMMON NORMALS: mental status grossly normal, Normal thought process present and cooperative THOUGHT PROCESS: Normal thought process present Skin: COMMON NORMALS: no rashes or lesions noted and no wounds GENERAL SKIN EXAM: no rashes or lesions noted Course Vital Signs: Vital signs: Vital Signs Temperature 98.3 F 02/11/25 12:39 Pulse Rate 73 02/11/25 12:39 Respiratory Rate 17 02/11/25 12:39 Blood Pressure 168/90 02/11/25 12:39 Pulse Oximetry 97 02/11/25 12:39 Oxygen Delivery Me thod Room Air 02/11/25 12:39 MDM - Neuro Symptoms/Deficit Medical Decision Making Patient presents here. Generalized weakness since resolved history of stroke in the past. Differential includes CVA, subarachnoid hemorrhage. Patient's head CT here is normal no signs of stroke or CVA. Patient is at her baseline on her neuroexam with no signs of any acute findings her symptoms have since resolved blood work here showed no significant abnormalities vitals here been stable did go over imaging and labs with her she is stable for discharge back to assisted she is follow-up with her PCP and return if worsening she understands agrees to plan. Medical Records I reviewed the patient's medical records. Lab Data I reviewed the patient's lab results. 02/11/25 12:57 02/11/25 12:57 Radiology Impressions Chest X-Ray 02/11/25 12:42 IMPRESSION: No acute cardiopulmonary abnormality. Head CT 02/11/25 12:42 IMPRESSION: 1. No acute intracranial abnormality. 2. Large old infarct in the right frontotemporoparietal region. 3. Mild chronic white matter disease. 4. Age-appropriate atrophy. Laboratory Results WBC 13.65 10^3/uL (3.29-11.43) H 02/11/25 12:57 RBC 4.88 10^6/uL (3.85-5.65) 02/11/25 12:57 Hgb 10.30 g/dL (11.27-16.99) L 02/11/25 12:57 Hct 34.4 % (36-47) L 02/11/25 12:57 MCV 70.5 fl (85-98) L 02/11/25 12:57 MCH 21.1 pg (27-33) L 02/11/25 12:57 MCHC 29.9 g/dL (30-55) L 02/11/25 12:57 RDW 20.0 % (12.1-15.1) H 02/11/25 12:57 Plt Count 330 10^3/cmm (157-399) 02/11/25 12:57 MPV 9.2 fL (7.4-10.4) 02/11/25 12:57 Neut % (Auto) 61.5 % 02/11/25 12:57 Lymph % (Auto) 24.8 % 02/11/25 12:57 [place] % (Auto) 9.5 % 02/11/25 12:57 Eos % (Auto) 3.4 % 02/11/25 12:57 Baso % (Auto) 0.6 % 02/11/25 12:57 Neut # (Auto) 8.40 10^3/uL (1.8-7.7) H 02/11/25 12:57 Lymph # (Auto) 3.4 10^3/uL (0.8-4.8) 02/11/25 12:57 [place] # (Auto) 1.3 10^3/uL (0.2-0.9) H 02/11/25 12:57 Eos # (Auto) 0.5 10^3/uL (0.0-0.8) 02/11/25 12:57 Baso # (Auto) 0.1 10^3/uL (0.0-0.1) 02/11/25 12:57 Nucleated RBC % (auto) 0 % 02/11/25 12:57 Nucleated RBCs # 0.0 /100WBC 02/11/25 12:57 PT 12.60 SECONDS (12.1-14.9) 02/11/25 12:57 INR 0.88 (0.8-1.2) 02/11/25 12:57 Sodium 142 mmol/L (136-145) 02/11/25 12:57 Potassium 3.8 mmol/L (3.5-5.1) 02/11/25 12:57 Chloride 106 mmol/L (98-107) 02/11/25 12:57 Carbon Dioxide 25 mmol/L (22-29) 02/11/25 12:57 Anion Gap 14.8 (5-19) 02/11/25 12:57 BUN 13 mg/dL (8-23) 02/11/25 12:57 Creatinine 0.7 mg/dL (0.5-0.9) 02/11/25 12:57 GFR Calculation 84.0 mL/min (90-130) L 02/11/25 12:57 Glucose 91 mg/dL (65-115) 02/11/25 12:57 Calculated Osmolality 294 mOsm/kg (285-295) 02/11/25 12:57 Calcium 9.4 mg/dL (8.5-10.5) 02/11/25 12:57 Total Bilirubin 0.2 mg/dL (0.15-1.2) 02/11/25 12:57 AST 11 U/L (0-32) 02/11/25 12:57 ALT 9 U/L (0-33) 02/11/25 12:57 Alkaline Phosphatase 101 U/L (35-105) 02/11/25 12:57 Total Protein 7.3 g/dL (6.6-8.7) 02/11/25 12:57 Albumin 3.7 g/dL (3.5-5.2) 02/11/25 12:57 Globulin 3.6 g/dL (1.3-4.6) 02/11/25 12:57 All radiology interpretation(s) finalized by discharge EKG Data EKG 1: I personally reviewed and interpreted this EKG as follows: EKG interpretation date: 02/11/25 EKG interpretation time: 13:08 Interpretation: nsr hr [address] elevation qrs 105 qtc 419 Discharge Plan Discharge Patient Disposition: Home Clinical Impression: Generalized weakness Condition: Stable Prescriptions: No Action atorvastatin 40 mg tablet 40 mg PO QAM metformin 500 mg tablet 500 mg PO DAILY acetaminophen 325 mg Tablet 650 mg PO Q4H PRN (Reason: Pain) ropinirole 1 mg tablet 1 mg PO BEDTIME ammonium lactate [AmLactin] 12 % Lotion See Rx Instructions .ROUTE .COMPLEX Rx Instructions: 1 applic topically to right thigh every 24 hours as needed for dryness/itching nystatin 100,000 unit/gram ointment See Rx Instructions .ROUTE .COMPLEX Rx Instructions: Apply to affected area under bilateral breasts and Left axillary topically every shift for redness/yeast dextromethorphan-guaifenesin [Barbara-Tussin DM] 10-100 mg/5 mL Liquid 10 ml PO Q6H PRN (Reason: Cough) melatonin 3 mg Tablet 3 mg PO BEDTIME magnesium hydroxide [Milk of Magnesia] 400 mg/5 mL Suspension 30 ml PO DAILY PRN (Reason: Constipation) baclofen 10 mg tablet 10 mg PO DAILY hydrocortisone 1 % Cream See Rx Instructions .ROUTE .COMPLEX PRN (Reason: Itching) Rx Instructions: 1 application to right hip/thigh topically as needed fot itching/hives. bisacodyl 10 mg Suppository 10 mg NV DAILY PRN (Reason: Constipation) calcium carbonate [Tums] 200 mg calcium (500 mg) Tablet,Chewable 400 mg PO Q8H PRN (Reason: gi upset) Fleet Enema 19-7 gram/118 mL Enema 118 ml NV DAILY PRN (Reason: Constipation) ibuprofen 200 mg Tablet 800 mg PO Q6H PRN (Reason: Pain) loperamide-simethicone [Imodium Advanced] 2-125 mg Tablet 1 tab PO Q6H PRN (Reason: Diarrhea) Rx Instructions: do not exceed 4 tabs in 24 hrs alum-mag hydroxide-simeth [Maalox] 200-200-20 mg/5 mL Suspension 30 ml PO Q4H PRN (Reason: heartburn, indigestion, stomach) Rx Instructions: administer between meals and at bedtime lisinopril 40 mg tablet 40 mg PO DAILY metoprolol tartrate 25 mg tablet 75 mg PO DAILY MDD hold if bp<90/60 cranberry 450 mg Tablet 900 mg PO DAILY Rx Instructions: administer with a meal baclofen 5 mg tablet 5 mg PO Q8H PRN (Reason: muscle spasms) Discharge Orders: Discharge ED (Routine); Ordered 02/11/25 Ordered By: Roderick Larkin Discharge Diet: Advance as tolerated Discharge Activity: Resume usual activity Patient Instructions: Weakness (Generalized) Print Language: Macedonian Coding Level of Care Code ED [employer] for Janay Sousa
--- OUTSIDE RECORDS SUMMARY | 2025-02-11 12:49 | XMS_ITS | Encounter Summary ---
Author Organization [facility] Address [address] [place] [address] Care Team Providers Care Sign Writer Hand Name Role Phone Unavailable Primary Care Provider Unavailabl e Encounter Details Date Type Department Care Team (Late st Contact Info) Description 07/22/2016 Orders Only [facility] [address] [facility] [place] [address] System, Provider Not In, [address] [place] [address] Social History Tobacco Use Types Packs/Day Years Used Date Smoking Tobacco: Never Assessed Comments Unknown Sex and Gender Information Value Date Recorded Sex Assigned at Not on file Legal Sex Female 8:42 AM CDT Gender Identity Not on file Sexual Orientation Not on file documented as of this encounter Plan of Treatment Not on file documented as of this encounter Procedures Procedure Name Priority Date/Time Associated Diagnosis Comments OUTSIDE IMAGES 07/22/2016 9:45 AM CDT documented in this encounter Results * Outside Images (07/22/2016 9:45 AM CDT) Anatomical Region Laterality Modality N/A Radiographic Anne Marie ging 07/22/2016 9:45 AM CDT Narrative 07/22/2016 9:45 AM CDT Image acquired from external facility for exam: MAMMO BILAT SCREENING Procedure Note System, Provider Not In, - 12/15/2023 Image acquired from external facility for exam: MAMMO BILAT SCREENING us Provider Not In System MD [facility] Final Result documented in this encounter Visit Diagnoses Not on filedocumented in this encounter
--- OUTSIDE RECORDS SUMMARY | 2025-02-11 12:49 | XMS_ITS | Encounter Summary ---
Author Organization [facility] Address [address] larios [facility] [place] [address] Care Team Providers Care Lubrication Servicer Name Role Phone Unavailable Primary Care Provider Unavailabl e Encounter Details Date Type Department Care Team (Late st Contact Info) Description 2017 Orders Only [facility] Radiology [address] [facility] [place], [place] [address] System, Provider Not In, [address] [place] [address] Social History Tobacco Use Types Packs/Day Years [...] Priority Date/Time Associated Diagnosis Comments OUTSIDE IMAGES 2017 11:40 AM CDT documented in this encounter Results * Outside Images (2017 11:40 AM CDT) Anatomical Region Laterality Modality N/A Radiographic Anne Marie ging 2017 11:4 0 AM CDT Narrative 2017 11:40 AM CDT Historic images from [facility] exist and can be viewed by using the hyperlink to access [employer] pacs: CT CHEST WO Procedure Note System, Provider Not InMD - 04/30/2020 Historic images from [facility] exist and can be viewed byusing the hyperlink to access [employer] pacs: CT CHEST WO us Provider Not In System MD [facility] Final Result documented in this encounter Visit Diagnoses Not on filedocumented in this encounter
--- OUTSIDE RECORDS SUMMARY | 2025-02-11 12:49 | XMS_ITS | Data Portability ---
Author Organization [place] [facility] [place], ADMIN Address [address] [place] [address] Assessment Encounter Date Assessment Date Assessment LastModified by Organization Details LastModified Time 11/02/2024 11/02/2024 X-rays performed today of the left shoulder reveal inferior subluxation of the humeral head in comparison to the glenoid due to muscle atrophy. Mild degenerative changes noted. No acute bony abnormality or dislocation noted. I reviewed imaging findings with the patient today.I discussed with her that she has significant atrophy of the musculature of the shoulder which has caused some inferior subluxation of her humeral head. This is likely the source of the popping and grinding in the shoulder. I discussed with her that there is not much that we can do to help with the muscle strength due to her stroke. We can treat the pain with oral medications and steroid injections. Patient was agreeable to trying a steroid injection in the shoulder today. After proper consent is obtained and time out procedure is done, the patient was sterilely prepped and LEFT shoulder was injected with 3mL of 1 % lidocaine, 3mL of 0.5% marcaine, and 2mL of betamethasone. Patient tolerated the injection well and reported relief afterward. She is to follow up in 3 months for recheck. Advised to call sooner with any issues or concerns. [email or web address] Not available 11/03/2024 11:00:44 Plan of Treatment Reminders Order Date Submit Date Provider Last Modified By Organization Details Last Modified Time Details Appointments *Follow-u p 15 2024 01:15P Percy BUSTAMANTE P.Angela. Not available Not available Not available Lab None recorded. Referral None recorded. Procedures None recorded. Surgeries None recorded. Imaging XR, shoulder, 2 or more view [address] [facility] (Radiology), [address], [place], [address], 11/03/2024 08:57:16 Medication Orders lidocaine (PF) 10 mg/mL (1 %) injection solution 2024 025 [email or web address] [facility], [address], [place], [address], 11/02/2024 17:40:45 Marcaine (PF) 0.5 % (5 mg/mL) injection solution 2024 025 [email or web address] [facility], [address], [place], [address], 11/02/2024 17:40:45 betametha sone acetate and sodium phos 6 mg/mL suspensio n for injection [email or web address] [place] [address] [facility], [address], [place], [address], 11/02/2024 17:40:45 Patient TargetsNo targets recorded. Patient Instructions Encounter Date Encounter Id Patient Instructions Last Modified By Organization Details Last Modified Time 11/02/2024 [id number] instructions to half-way* - steroid injection today, work on ROM, no progressive PT [email or web address] Not available 11/03/2024 13:23:37 Reason for Referral None Reported. Results Created Date Observation Date Name Description Value Unit Range Abnormal Flag Note LastModifiedBy Organization Detail LastModifiedTime 11/04/1911/02/2024 XR, shoul cheryl, 2 or more view [facility] [place] [facility] [address] [place] [address]- [phone] Korey t: LUCERO BATES [id number] : 960 Sex:Fe male Locati on: [facility] Orderi ng Physic theresa: ALEXANDRA BUSTAMANTE Diagno stic Radiol ogy Access ion Exam Date/T liana [id number] 11/03/19 15:41 CDT Reason for Exam pain Report EXAM: XR SHOULD ER COMPLE TE MIN [address] HISTOR Y: pain TECHNI QUE: Three views. Fronta l summer internship al rotati on, fronta l plan consultant al rotati on, and scapul ar Y-view . COMPAR IRLANDA: None. FINDIN GS: No focus of cortic al bone disrup tion is identi fied to sugges t recent displa kamilah fractu re involv ing the visual ized osseou s struct ures No orthop edic disloc ation shown No retain ed radiop aque foreig n body is identi fied IMPRES CARMEN: No recent appear ing displa kamilah fractu re is apprec iated Final Signed by: PATRICK LANGE MD Signed (Elect ronic Signat ure): 2024 07:[email or web address] [facility] (Radiology) [address] [facility], [place], [address], 11/03/2024 10:11:15 Result Notes Documentation Provider Name and Address Organization Details Recorded Time Xr, Shoulder, 2 Or More View : [facility] [address] [place] [address]- Patient: LUCERO BATES : 1960 Sex:Female Location: [facility] Ordering Physician: ALEXANDRA BUSTAMANTE Diagnostic Radiology Accession Exam Date/Time [id number] 11/02/2024 15:41 CDT Reason for Exam pain Report EXAM: XR SHOULDER COMPLETE MIN [address] HISTORY: pain TECHNIQUE: Three views. Frontal internal rotation, frontal external rotation, and scapular Y-view. COMPARISON: None. FINDINGS: No focus of cortical bone disruption is identified to suggest recent displaced fracture involving the visualized osseous structures No orthopedic dislocation shown No retained radiopaque foreign body is identified IMPRESSION: No recent appearing displaced fracture is appreciated Final Signed by: PATRICK ANGELO MD Signed (Electronic Signature): 11/03/2024 07:57 am CDT GRETTA GAYTAN [address] [place], [address], [address] 11/03/2024 10:11:16 Medical Equipment None Reported. Allergies Allergen ID Allergen Name Allergen Category Reaction Reaction Severity Criticality Documentation Date Start Date Code Code System Note Provider Name and Address Organization Details Recorded Time 520991 Product containin g penicilli n (product) medicatio n rash Not available Not available 11/02/2024 14002 8001 SNOMED Chance cross [address] 17:07:50 780716 Substance with sulfonami de structure and antibacte rial mechanism of action (substanc e) medicatio n headache Not available Not available 11/02/2024 06902 8003 SNOMED Chance cross [address] 17:08:03 Medications Name Sig Start Date Stop Date Status Note LastModified by Organization Details LastModified Time betamethas one acetate and sodium phos 6 mg/mL suspension for injection Take 2 mL by injection route. 2024 active L SHOULDER INJECTION /PT TOLERATED WELL Not Available Not Available Not Available Marcaine (PF) 0.5 % (5 mg/mL) injection solution Take 3 mL by injection route. 2024 active L SHOULDER INJECTION /PT TOLERATED WELL Not Available Not Available Not Available lidocaine (PF) 10 mg/mL (1 %) injection solution Take 3 mL by injection route. 2024 active L SHOULDER INJECTION /PT TOLERATED WELL Not Available Not Available Not Available aspirin 81 mg capsule Take 1 capsule every day by oral route. active Not Available Not Available No t Available Vitals Date Recorded Body height Heart rate Body mass index (BMI) Body weight Pain severity - 0-10 verbal numeric rating [Score] - Reported Systolic And Diastolic Provider Name and Address Organization Details Last Updated DateTime 157.48 cm 65 /min 28 kg/m2 29011.6 3 g 9 123/82 mm[Hg] Chance T[facility] [place] 17:06:49 Social History Question Answer Notes LastModified by Organizat ion Details LastModified Time Tobacco Smoking Status Current Every Day Smoker [facility] [place] 11/02/2024 17:08:50 What Is Your Current Pack Years? 30ormorepacky ears Information not available 11/02/2024 Sex: Unknown Functional Status None recorded. Mental Status None recorded. Family History Nothing Reported. Medical History Condition Response STROKE Y HEADACHES Y Gynecological HistoryNo gynecological history recorded. 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 5004656244 47974 M19.281 8203913 Health Concerns Section Related Observation LastModified by Organization Detai ls LastModified Time None Recorded Concern Status LastModified by Organization Details LastModified Time None Recorded Advance Directives Directive None Recorded Payers Insurance Date Sequence Insurance Name Policy Number Policy Morse Covered Member ID Morse Member ID Guarantor Name 02/09/2025 1 [place] Lucero Bates [id number] Lucero Bates Notes Date Note Type Note Provider Name and Address Organization Details Recorded Time 11/02/2024 text/html 64-year-old female seen office today for evaluation treatment of left shoulder pain. Patient states that she had a stroke back in 2016 that caused left-sided hemiparalysis. She states she has not had any use of the left arm since the stroke. She states that for the last 4 months she has had progressively worsening left shoulder pain. She states that moving around in bed causes her shoulder to pop and causes increased discomfort. Patient denies any injury to the shoulder. She rates her pain today 9/10. She takes muscle relaxers and ibuprofen for the pain. GRETTA GAYTAN [address] [facility], [place], [address], [facility] [place] 11/03/2024 11:01:06 OBGyn Episode No OBEpisode recorded.
--- OUTSIDE RECORDS SUMMARY | 2025-02-11 12:49 | XMS_ITS | Clinical Summary ---
Author Organization [facility] Address [address] [place] [address] Care Team Providers Care Industrial Laborer Name Role Phone Unavailable Primary Care Provider Unavailabl e Allergies Active Allergy Reactions Criticality Noted Date Comments Penicillins Rash Low 01/15/2009 Sulfa (Sulfonamide Antibiotics) Headache 11/28 Medications melatonin 3 mg tablet Take 3 mg by mouth nightly. 12/06/2024 Active DULoxetine (CYMBALTA) [address] Singh ons:Generalized anxiety disorder Take 1 capsule (30 mg total) by mouth in the morning. 30 capsule 11 12/25/2024 Active Active Problems No known active problems Encounters Date Type Department Care Team Description 12/25/2024 Travel from Last 3 Months Social History Tobacco Use Types Packs/Day Years Used Date Smoking Tobacco: Every Day Cigarettes Tobacco Cessation:Counseling Given: Yes Alcohol Use Standard Drinks/Week Comments Defer 0 (1 standard drink = 0.6 oz pur e alcohol) PHQ-2 Answer Date Recorded PHQ-2 Score 2 12/25/2024 Comments Unknown Sex and Gender Information Value Date Recorded Sex Assigned at Not on file Legal Sex Female 8:42 AM CDT Gender Identity Not on file Sexual Orientation Not on file Last Filed Vital Signs Vital Sign Reading Time Taken Comments Blood Pressure 132/76 12/25/2024 11:46 AM CDT Pulse 77 12/25/2024 11:46 AM CDT Temperature 36.8 C (98.2 F) 12/25/2024 11:46 AM CDT Respiratory Rate 18 12/25/2024 11:46 AM CDT Oxygen Saturation - - Inhaled Oxygen Concentration - - Weight 83.5 kg (184 lb) 12/25/2024 11:46 AM CDT Height 157.5 cm (5' 2 ) 12/25/2024 11:46 AM CDT Body Mass Index 33.65 12/25/2024 11:46 AM CDT Plan of Treatment Health Maintenance Due Date Last Done Comments Foot Exam 1960 Ophthalmology Exam 10/17/1969 Urine Microalbumin 10/17/1969 RSV 60+ (1 - Risk 50-74 year s 1-dose series) 10/17/2009 Shingrix (ZOSTER RECOMBINANT ) (1 of 2) 10/17/2009 Annual Wellness 03/15/2013 03/15/2012, 01/15/2009 Hepatitis B Vaccines (2 of 3 - 19+ 3-dose series) 08/11/2016 07/14/2016 Hemoglobin A1C 10/12/2016 07/14/2016 Pneumococcal Vaccine: 50+ Years (2 of 2 - PCV) 04/13/2017 04/13/2016 Mammogram 07/22/2017 07/22/2016, 07/22/2016 Td, Tdap Vaccines Adult 01/15/2019 01/16/20 09, 02/12/1993 Bone Density Scan (DXA Scan) 10/17/2024 Influenza Vaccination (#1) 2024 01/05/2016 Colonoscopy 10/20/2027 10/19/2017 HIB Vaccines Aged Out No longer eligi ble based on patient's age to complete this topic HPV Vaccines Aged Out No longer eligi ble based on patient's age to complete this topic Hepatitis A Vaccines Aged Out No long er eligible based on patient's age to complete this topic IPV Vaccines Aged Out No longer eligi ble based on patient's age to complete this topic Meningococcal Vaccines Aged Out No lo nger eligible based on patient's age to complete this topic RSV Mab Nirsevimab (Beyfortu s) <20 months Aged Out No longer eligible b ased on patient's age to complete this topic Rotavirus Vaccines Aged Out No longer eligible based on patient's age to complete this topic Insurance [facility]
[2025-02-11 13:01] LABS: Hematocrit 34.4 % (36-47); Hemoglobin 10.30 g/dL (11.27-16.99); Mean Corpuscular HGB Conc 29.9 g/dL (30-55); Mean Corpuscular Hemoglobin 21.1 pg (27-33); Mean Corpuscular Volume 70.5 fl (85-98); Nucleated Red Blood Cells % 0 %; Platelet Count 330 10^3/cmm (157-399); Red Blood Count 4.88 10^6/uL (3.85-5.65); White Blood Count 13.65 10^3/uL (3.29-11.43)
[2025-02-11 13:12] LABS: INR 0.88 (0.8-1.2); Prothrombin Time 12.60 SECONDS (12.1-14.9)
[2025-02-11 13:20] LABS: Alanine Aminotransferase 9 U/L (0-33); Albumin Level 3.7 g/dL (3.5-5.2); Alkaline Phosphatase 101 U/L (35-105); Aspartate Amino Transferase 11 U/L (0-32); Blood Urea Nitrogen 13 mg/dL (8-23); Calcium 9.4 mg/dL (8.5-10.5); Carbon Dioxide 25 mmol/L (22-29); Chloride 106 mmol/L (98-107); Globulin 3.6 g/dL (1.3-4.6); Glucose 91 mg/dL (65-115); Osmolality Calculated 294 mOsm/kg (285-295); Sodium 142 mmol/L (136-145); Total Protein 7.3 g/dL (6.6-8.7)
--- NOTE | 2025-02-11 13:28 | PC.PHAR ---
Pt is a resident at [facility] [phone]
[2025-02-11 13:38] LABS: Anion Gap 14.8 (5-19); Potassium 3.8 mmol/L (3.5-5.1)
[2025-02-11 13:46] VITALS: BP 175/95; PULSE 72; RESP 18; O2SAT 94
[2025-02-11 14:46] VITALS: BP 158/97; PULSE 73; RESP 15; O2SAT 96
[2025-02-11 15:08] VITALS: BP 160/94; PULSE 72; O2SAT 93
[2025-02-11 15:45] VITALS: BP 137/66; PULSE 71; RESP 17; O2SAT 96
[2025-02-11 18:33] VITALS: PULSE 73; O2SAT 95
== END 2025-02-11 19:03 | disposition home or self-care (01) ==
PROVIDERS: Emergency Provider Emergency Medicine
DX: R53.1 Weakness (principal); Z79.84 Long term (current) use of oral hypoglycemic drugs
CPT/HCPCS: 70450; 71045; 80053; 85025; 85610; 93005; 99285